=== PATIENT | male | born 1965 | race Two or more races ===

== ENCOUNTER 2020-06-11 13:24 | Outpatient (CLI) | payer MEDICAID ==
[2020-06-11] MEDS ORDERED: ATORVASTATIN CA20 MG ORAL (14:29)
[2020-06-11] MEDS ORDERED: METFORMIN HCL850 M1 ORAL (14:29)
--- NOTE | 2020-06-11 18:14 | Consultation ---
DATE OF CONSULTATION: 06/11/2020 CONSULTING PHYSICIAN: David Daniel MD. CHIEF COMPLAINT: Referral for screening colonoscopy. PAST MEDICAL HISTORY: Diabetes, hypercholesterolemia. PAST SURGICAL HISTORY: Left ankle surgery. MEDICATIONS: for diabetes and hypercholesterolemia. FAMILY HISTORY: No GI malignancies. SOCIAL HISTORY: The patient used to drink, but now only socially. No tobacco. No IV drug abuse. ALLERGIES: No known drug allergies. REVIEW OF SYSTEMS: Negative. PHYSICAL EXAMINATION: GENERAL: A well-developed male, in no acute distress. HEENT: Normocephalic and atraumatic. Sclerae anicteric. NECK: Supple. No evidence of obvious lymphadenopathy. CARDIOVASCULAR: Regular rate and rhythm. Plus S1, S2. LUNGS: Clear to auscultation bilaterally. ABDOMEN: Positive bowel sounds. Soft and nontender. No rebound. No guarding. No peritoneal sign. EXTREMITIES: No cyanosis. No clubbing. No edema. ASSESSMENT AND PLAN: This is a 54-year-old patient with referral for screening colonoscopy. The patient was given the instruction for colonoscopy. Risks and benefits of the procedure were explained to him. He agreed. We are going to schedule him when the authorization is obtained. David Daniel M.D. DR: HELIO JOB#: [id number] CC:
== END 2020-06-11 15:24 | disposition home or self-care (01) ==
LOC: PAN 13:24
DX: E11.9 Type 2 diabetes mellitus without complications (principal); E78.00 Pure hypercholesterolemia, unspecified
CPT/HCPCS: G0463